=== PATIENT | female | born 1940 | race Caucasian/White ===

== ENCOUNTER 2020-01-11 10:32 | Outpatient (REF) | payer MEDICARE, SELFPAY | END 2020-01-11 10:33 | disposition home or self-care (01) | LOC: HO.LAB 10:32 | PROVIDERS: Visit Provider Nurse Practitioner Family | DX: Z20.828 Contact with and (suspected) exposure to other viral communicable diseases (principal) | CPT/HCPCS: 87635 ==

== ENCOUNTER 2020-02-13 08:58 | Outpatient (REF) | payer MEDICARE, SELFPAY | END 2020-02-13 08:59 | disposition home or self-care (01) | LOC: HO.HMGCLDS 08:58 | PROVIDERS: PCP Internal Medicine; Visit Provider Internal Medicine | DX: Z20.828 Contact with and (suspected) exposure to other viral communicable diseases (principal) | CPT/HCPCS: C9803; U0003 ==